=== PATIENT | male | born 1955 | race Hispanic/Latino ===

== ENCOUNTER 2020-08-03 22:24 | Inpatient (IN) | payer BC ==
[2020-08-03] MEDS ORDERED: Sodium Chloride 0.9% 1,000 ML IV SCH (23:45)
[2020-08-03] MEDS ORDERED: hydrALAZINE 20 MG/ML VIAL SLOW IVP PRN (23:46)
[2020-08-03] MEDS ORDERED: TETANUS AND DIPHTHERIA TOX/PF 0.5 ML DISP.SYRIN IM ONE (23:46)
[2020-08-03] MEDS ORDERED: Dextrose 50% Abboject 50 ML SYRINGE SLOW IVP PRN (23:46)
[2020-08-03] MEDS ORDERED: Ondansetron PF 4 MG/2 ML Vial IVP PRN (23:46)
[2020-08-03] MEDS ORDERED: Dextrose 5% in Water 1,000 ML IV PRN (23:46)
[2020-08-03] MEDS ORDERED: Morphine 2 MG/ML VIAL SLOW IVP PRN (23:46)
[2020-08-03] MEDS ORDERED: Cyclobenzaprine 10 MG TAB PO PRN (23:55)
[2020-08-03] MEDS ORDERED: traMADol HCl 50 MG TAB PO PRN (23:56)
[2020-08-04] MEDS ORDERED: Morphine 4 MG/ML VIAL ONE (00:18)
[2020-08-04] MEDS: Acetaminophen 500 MG TAB PO SCH ×5 (01:23→23:57)
[2020-08-04 02:47] VITALS: BMI 24.4
[2020-08-04] MEDS: traMADol HCl 50 MG TAB PO SCH ×4 (05:26→23:57)
[2020-08-04] MEDS: Ibuprofen 600 MG TAB PO SCH ×3 (05:26→21:27)
[2020-08-04 05:43] LABS: #Lymphocytes 0.6 thou/uL (1.20-3.40); #Monocytes 0.5 thou/uL (0.11-0.59); #Neutrophils 5.5 thou/uL (1.40-6.50); %Eosinophils 0.1 % (0.0-10.0); %Lymphocytes 8.6 % (21.0-51.0); %Monocytes 7.7 % (0.0-10.0); %Neutrophils 83.5 % (42.0-75.0); Hemoglobin 13.5 g/dL (14.0-18.0); Mean Corpuscular HGB CONC 35.8 g/dL (32.0-36.0); Mean Corpuscular Hemoglobin 33.4 pg (27.0-31.0); Mean Corpuscular Volume 93.3 fL (78.0-98.0); Mean Platelet Volume 7.8 fL (7.4-10.4); Platelet Count 72 thou/uL (130-400); RBC Distribution Width 12.8 % (11.5-14.5); Red Blood Cell (RBC) Count 4.05 mill/uL (4.70-6.10); White Blood Cell (WBC) Count 6.6 thou/uL (4.8-10.8)
[2020-08-04] MEDS: Insulin Regular 300 UNITS/3 ML VIAL SC PRN (05:58)
[2020-08-04 06:00] LABS: Anion Gap 14 mmol/L (10-20); BUN (Urea Nitrogen) 14 mg/dL (8.4-25.7); Calc. Creatinine Clearance 94 mL/min (70-130); Calcium 8.9 mg/dL (7.8-10.44); Carbon Dioxide 23 mmol/L (23-31); Chloride 105 mmol/L (98-107); Glucose 269 mg/dL (80-115); Magnesium 1.5 mg/dL (1.6-2.6); Phosphorus 4.3 mg/dL (2.3-4.7); Potassium 4.1 mmol/L (3.5-5.1); Sodium 138 mmol/L (136-145)
[2020-08-04] MEDS ORDERED: Sodium Chloride 0.9% 1,000 ML IV SCH (06:36)
[2020-08-04] MEDS ORDERED: CEFAZOLIN 2 GM in Premix Bag 1 BAG IVPB SCH (07:45)
[2020-08-04] MEDS ORDERED: CEFAZOLIN 1 GM VIAL SLOW IVP SCH (07:45)
[2020-08-04 07:59] LABS: SARS-CoV-2 NAA Rapid Test Not Detected (NotDetected)
[2020-08-04] MEDS: Senokot S 8.6-50 MG TAB PO SCH ×2 (09:08→21:27)
[2020-08-04] MEDS: Gabapentin 100 MG CAP PO SCH ×3 (09:08→21:27)
[2020-08-04] MEDS: Famotidine 20 MG TAB PO SCH ×2 (09:08→21:27)
[2020-08-04] MEDS: Polyethylene Glycol 3350 17 GM Packet PO SCH (09:08)
[2020-08-04] MEDS ORDERED: Lidocaine 2% Jelly 5 ML TUBE ONE (09:35)
[2020-08-04] MEDS ORDERED: Midazolam HCl 2 mg/2 ml Vial ONE (09:35)
[2020-08-04] MEDS ORDERED: Fentanyl 250 MCG/5 ML VIAL ONE (09:35)
[2020-08-04] MEDS ORDERED: Phenylephrine 10 MG/ML VIAL ONE (09:35)
[2020-08-04] MEDS ORDERED: Bupivacaine PF 0.5% 30 ML VIAL ONE (09:42)
[2020-08-04] MEDS ORDERED: EPINEPHrine 1 MG/ML AMP ONE (09:42)
[2020-08-04] MEDS ORDERED: Thrombin 5000 UNITS/5 ML VIAL ONE (09:42)
[2020-08-04] MEDS ORDERED: Insulin Regular 300 UNITS/3 ML VIAL ONE (09:45)
[2020-08-04] MEDS ORDERED: Albumin 5% 250 ML ONE ×2 (10:04→10:05)
[2020-08-04] MEDS ORDERED: PROPOFOL 200 MG/20 ML VIAL ONE (10:20)
[2020-08-04] MEDS ORDERED: Rocuronium Bromide 10 MG/ML (10ML VIAL) ONE (10:20)
[2020-08-04] MEDS ORDERED: Dexamethasone 20 MG/5 ML VIAL ONE (10:20)
[2020-08-04] MEDS ORDERED: Glycopyrrolate 0.2 MG/ML 5 ML SYRINGE ONE (10:20)
[2020-08-04] MEDS ORDERED: PHENYLEPHRINE-NS 100 MCG/ML 10 ML SYRINGE ONE (10:20)
[2020-08-04] MEDS ORDERED: Lidocaine 1% PF 5 ML VIAL ONE (10:20)
[2020-08-04 10:47] LABS: INR-International Normal Ratio 1.2; Prothrombin Time 15.4 sec (12.0-14.7)
[2020-08-04 10:48] LABS: PTT 29.9 sec (22.9-36.1)
[2020-08-04] MEDS ORDERED: Neomycin-Polymyxin 1 ML AMP ONE (10:49)
[2020-08-04 13:33] LABS: Hemoglobin 11.9 g/dL (14.0-18.0)
[2020-08-04] MEDS ORDERED: Promethazine HCl 25 MG/ML VIAL IVPB PRN (14:32)
[2020-08-04] MEDS ORDERED: Meperidine HCl/PF 25 MG/ML VIAL SLOW IVP PRN (14:32)
[2020-08-04] MEDS ORDERED: Ondansetron HCl/PF 4 MG/2 ML Vial IVP PRN (14:32)
[2020-08-04] MEDS ORDERED: HYDROmorphone 2 MG/ML VIAL SLOW IVP PRN (14:32)
[2020-08-04] MEDS ORDERED: Promethazine HCl 25 MG/ML VIAL IM PRN (14:32)
[2020-08-04] MEDS: Lisinopril 10 MG TAB PO SCH (16:36)
[2020-08-04] MEDS: CEFAZOLIN 2 GM in Premix Bag 1 BAG IVPB SCH (17:23)
[2020-08-05] MEDS: CEFAZOLIN 2 GM in Premix Bag 1 BAG IVPB SCH ×3 (01:17→17:41)
[2020-08-05] MEDS: Insulin Regular 300 UNITS/3 ML VIAL SC PRN ×3 (06:18→17:42)
[2020-08-05] MEDS: traMADol HCl 50 MG TAB PO SCH ×4 (06:20→23:58)
[2020-08-05] MEDS: Acetaminophen 500 MG TAB PO SCH ×4 (06:20→23:59)
[2020-08-05] MEDS: Ibuprofen 600 MG TAB PO SCH ×2 (06:21→14:56)
[2020-08-05] MEDS: Senokot S 8.6-50 MG TAB PO SCH ×2 (08:11→20:30)
[2020-08-05] MEDS: Famotidine 20 MG TAB PO SCH ×2 (08:12→20:31)
[2020-08-05] MEDS: Gabapentin 100 MG CAP PO SCH ×3 (08:13→20:30)
[2020-08-05] MEDS: Lisinopril 10 MG TAB PO SCH (08:14)
[2020-08-05] MEDS: Polyethylene Glycol 3350 17 GM Packet PO SCH (08:14)
[2020-08-05 10:22] LABS: #Monocytes 0.8 thou/uL (0.11-0.59); #Neutrophils 5.2 thou/uL (1.40-6.50); %Basophils 0.1 % (0.0-1.0); %Eosinophils 0.3 % (0.0-10.0); %Lymphocytes 13.6 % (21.0-51.0); %Monocytes 11.7 % (0.0-10.0); %Neutrophils 74.3 % (42.0-75.0); Hemoglobin 11.5 g/dL (14.0-18.0); Mean Corpuscular Hemoglobin 33.2 pg (27.0-31.0); Platelet Count 88 thou/uL (130-400); Red Blood Cell (RBC) Count 3.46 mill/uL (4.70-6.10)
[2020-08-06] MEDS: CEFAZOLIN 2 GM in Premix Bag 1 BAG IVPB SCH ×3 (01:24→18:07)
[2020-08-06] MEDS: Insulin Regular 300 UNITS/3 ML VIAL SC PRN ×3 (06:01→18:08)
[2020-08-06] MEDS: Acetaminophen 500 MG TAB PO SCH ×3 (06:16→18:07)
[2020-08-06] MEDS: traMADol HCl 50 MG TAB PO SCH ×3 (06:16→18:05)
[2020-08-06] MEDS: Lisinopril 10 MG TAB PO SCH (08:53)
[2020-08-06] MEDS: Senokot S 8.6-50 MG TAB PO SCH ×2 (08:54→20:58)
[2020-08-06] MEDS: Gabapentin 100 MG CAP PO SCH ×3 (08:54→20:59)
[2020-08-06] MEDS: Famotidine 20 MG TAB PO SCH ×2 (08:56→20:59)
[2020-08-06] MEDS: Polyethylene Glycol 3350 17 GM Packet PO SCH (08:56)
[2020-08-06] MEDS: metFORMIN 850 MG TAB PO SCH (20:58)
[2020-08-06] MEDS: Pioglitazone HCl 15 MG TAB PO SCH (20:59)
[2020-08-07] MEDS: traMADol HCl 50 MG TAB PO SCH ×4 (00:48→17:59)
[2020-08-07] MEDS: Acetaminophen 500 MG TAB PO SCH ×4 (00:48→17:58)
[2020-08-07] MEDS: CEFAZOLIN 2 GM in Premix Bag 1 BAG IVPB SCH ×2 (01:08→10:34)
[2020-08-07] MEDS: metFORMIN 850 MG TAB PO SCH ×2 (08:53→21:13)
[2020-08-07] MEDS: Senokot S 8.6-50 MG TAB PO SCH ×2 (08:53→21:13)
[2020-08-07] MEDS: Gabapentin 100 MG CAP PO SCH ×3 (08:53→21:13)
[2020-08-07] MEDS: Pioglitazone HCl 15 MG TAB PO SCH ×2 (08:54→21:13)
[2020-08-07] MEDS: Famotidine 20 MG TAB PO SCH ×2 (08:54→21:13)
[2020-08-07] MEDS: Glimepiride 2 MG TAB PO SCH (08:54)
[2020-08-07] MEDS: Lisinopril 10 MG TAB PO SCH (08:54)
[2020-08-07] MEDS: Polyethylene Glycol 3350 17 GM Packet PO SCH (08:55)
[2020-08-07] MEDS: Insulin Regular 300 UNITS/3 ML VIAL SC PRN ×2 (12:39→15:40)
[2020-08-08] MEDS: traMADol HCl 50 MG TAB PO SCH ×4 (00:34→18:36)
[2020-08-08] MEDS: Acetaminophen 500 MG TAB PO SCH ×4 (00:34→17:59)
[2020-08-08] MEDS: Gabapentin 100 MG CAP PO SCH ×3 (08:01→21:48)
[2020-08-08] MEDS: Pioglitazone HCl 15 MG TAB PO SCH ×2 (08:01→21:52)
[2020-08-08] MEDS: Lisinopril 10 MG TAB PO SCH (08:01)
[2020-08-08] MEDS: Glimepiride 2 MG TAB PO SCH (08:03)
[2020-08-08] MEDS: Polyethylene Glycol 3350 17 GM Packet PO SCH (08:03)
[2020-08-08] MEDS: Famotidine 20 MG TAB PO SCH ×2 (08:03→21:47)
[2020-08-08] MEDS: metFORMIN 850 MG TAB PO SCH ×2 (08:03→21:52)
[2020-08-08] MEDS: Senokot S 8.6-50 MG TAB PO SCH ×2 (08:03→21:53)
[2020-08-08] MEDS: Insulin Regular 300 UNITS/3 ML VIAL SC PRN ×2 (11:27→18:00)
[2020-08-09] MEDS: Acetaminophen 500 MG TAB PO SCH ×5 (01:07→23:34)
[2020-08-09] MEDS: traMADol HCl 50 MG TAB PO SCH ×5 (01:08→23:35)
[2020-08-09] MEDS: metFORMIN 850 MG TAB PO SCH ×2 (08:54→20:45)
[2020-08-09] MEDS: Famotidine 20 MG TAB PO SCH ×2 (08:55→20:43)
[2020-08-09] MEDS: Gabapentin 100 MG CAP PO SCH ×3 (08:55→20:44)
[2020-08-09] MEDS: Lisinopril 20 MG TAB PO SCH (08:55)
[2020-08-09] MEDS: Glimepiride 2 MG TAB PO SCH (08:56)
[2020-08-09] MEDS: Polyethylene Glycol 3350 17 GM Packet PO SCH (08:57)
[2020-08-09] MEDS: Senokot S 8.6-50 MG TAB PO SCH ×2 (08:57→20:46)
[2020-08-09] MEDS: Insulin Regular 300 UNITS/3 ML VIAL SC PRN (11:56)
[2020-08-09] MEDS: Pioglitazone HCl 15 MG TAB PO SCH (17:29)
[2020-08-10 03:36] VITALS: TEMP 98.2
[2020-08-10] MEDS: Acetaminophen 500 MG TAB PO SCH (05:35)
[2020-08-10] MEDS: traMADol HCl 50 MG TAB PO SCH (05:35)
[2020-08-10 07:31] VITALS: BP 146/71
[2020-08-10] MEDS: Gabapentin 100 MG CAP PO SCH (09:11)
[2020-08-10] MEDS: metFORMIN 850 MG TAB PO SCH (09:13)
[2020-08-10] MEDS: Famotidine 20 MG TAB PO SCH (09:13)
[2020-08-10] MEDS: Lisinopril 20 MG TAB PO SCH (09:13)
[2020-08-10] MEDS: Pioglitazone HCl 15 MG TAB PO SCH (09:14)
[2020-08-10] MEDS: Polyethylene Glycol 3350 17 GM Packet PO SCH (09:54)
[2020-08-10] MEDS: Senokot S 8.6-50 MG TAB PO SCH (09:54)
[2020-08-11] MEDS ORDERED: Glimepiride 2 MG TAB PO SCH (08:00)
== END 2020-08-10 10:40 | disposition swing bed (61) | DRG 460 ==
LOC: ERS 22:24 → SURG B 23:46 → OBSVTOIN 08-04 11:09
PROVIDERS: ADMIT Specialist; ATTEND Specialist
PROC: 0RGA071 Fusion of Thoracolumbar Vertebral Joint with Autologous Tissue Substitute, Posterior Approach, Posterior Column, Open Approach (ICD-10-PCS; principal; 2020-08-04)
PROC: 0PS404Z Reposition Thoracic Vertebra with Internal Fixation Device, Open Approach (ICD-10-PCS; 2020-08-04)
PROC: 0SG1071 Fusion of 2 or more Lumbar Vertebral Joints with Autologous Tissue Substitute, Posterior Approach, Posterior Column, Open Approach (ICD-10-PCS; 2020-08-04)
PROC: 0QS004Z Reposition Lumbar Vertebra with Internal Fixation Device, Open Approach (ICD-10-PCS; 2020-08-04)
PROC: 0RG6071 Fusion of Thoracic Vertebral Joint with Autologous Tissue Substitute, Posterior Approach, Posterior Column, Open Approach (ICD-10-PCS; 2020-08-04)
PROC: 01N80ZZ Release Thoracic Nerve, Open Approach (ICD-10-PCS; 2020-08-04)
PROC: 01NB0ZZ Release Lumbar Nerve, Open Approach (ICD-10-PCS; 2020-08-04)
PROC: 30233R1 Transfusion of Nonautologous Platelets into Peripheral Vein, Percutaneous Approach (ICD-10-PCS; 2020-08-04)
PROC: 30233N0 Transfusion of Autologous Red Blood Cells into Peripheral Vein, Percutaneous Approach (ICD-10-PCS; 2020-08-04)
DX: S22.082A Unstable burst fracture of T11-T12 vertebra, initial encounter for closed fracture (principal); S32.012A Unstable burst fracture of first lumbar vertebra, initial encounter for closed fracture; S32.301A Unspecified fracture of right ilium, initial encounter for closed fracture; Z20.822 Contact with and (suspected) exposure to COVID-19; E03.9 Hypothyroidism, unspecified; I10 Essential (primary) hypertension; D69.6 Thrombocytopenia, unspecified; E11.65 Type 2 diabetes mellitus with hyperglycemia; W11.XXXA Fall on and from ladder, initial encounter; F10.11 Alcohol abuse, in remission; Z79.890 Hormone replacement therapy; Z79.899 Other long term (current) drug therapy; Z79.84 Long term (current) use of oral hypoglycemic drugs
CPT/HCPCS: 36415; 36416; 36430; 76000; 80048; 83735; 84100; 85025; 85610; 85730; 86850; 86900; 86901; 93970; 96374; C1713; C1768; G0378; J0171; J0690; J1100; J1815; J2250; J2270; J2370; J2704; J3010; J3370; J3475; J3490; P9016; P9035; P9045; S0020; U0002; U0005